=== PATIENT | female | born 1965 | race Caucasian/White ===

== ENCOUNTER 2024-08-03 15:31 | Emergency (ER) | payer SELFPAY ==
[~2024-08-03 15:31] MED LIST: Iopamidol-370 76% 500 ML MDV (1 ML CHARGE) ONE
[2024-08-03] MEDS ORDERED: Morphine 4 MG/ML VIAL ONE (16:54)
[2024-08-03] MEDS ORDERED: Ketorolac Tromethamine 30 MG (1 mL) VIAL ONE (16:54)
[2024-08-03] MEDS ORDERED: Ondansetron PF 4 MG/2 ML Vial ONE (16:54)
[2024-08-03 17:21] LABS: Bacteria/HPF None Seen HPF (None Seen); Bilirubin Negative (Negative); Blood, Urine Negative (Negative); CAUTI Indications for Culture Acute Hematuria; Clarity Clear (Clear); Glucose, Urine (Dipstick) Normal (Negative); Ketone, Urine Negative (Negative); Leukocyte Negative Leu/uL (Negative); Nitrite Negative (Negative); Protein, Urine (Dipstick) Negative (Neg-Trace); RBC/HPF 0-3 HPF (0-3); Squamous Epithelial 0-3 HPF (0-3); Urobilinogen Normal mg/dL (Less than 2); WBC/HPF 0-3 HPF (0-3)
[2024-08-03 17:25] LABS: Urine Culture Reflex No No
[2024-08-03 17:32] LABS: #Basophils 0.07 10x3/uL (0.0-0.2); %Basophils 0.5 % (0.0-1.0); %Eosinophils 1.6 % (0.0-10.0); %Lymphocytes 14.8 % (21.0-51.0); %Monocytes 9.3 % (0.0-10.0); %Neutrophils 73.4 % (42.0-75.0); Mean Corpuscular HGB CONC 34.1 g/dL (32.0-36.0); Mean Corpuscular Hemoglobin 31.7 pg (27.0-31.0); Mean Platelet Volume 9.3 fL (7.4-10.4); Platelet Count 249 10x3/uL (130-400); RBC Distribution Width 13.1 % (11.5-14.5); Red Blood Cell (RBC) Count 4.73 mill/uL (4.20-5.40)
[2024-08-03 18:05] LABS: ALT (SGPT) 13 U/L (8-55); AST (SGOT) 11 U/L (5-34); Albumin 3.8 g/dL (3.5-5.0); Alkaline Phosphatase 77 U/L (40-110); Anion Gap 13 mmol/L (10-20); BUN (Urea Nitrogen) 10 mg/dL (9.8-20.1); Bilirubin, Total 0.4 mg/dL (0.2-1.2); Calc. Creatinine Clearance 0 mL/min (70-130); Calcium 8.8 mg/dL (7.8-10.44); Carbon Dioxide 23 mmol/L (22-29); Chloride 103 mmol/L (98-107); Estimated GFR 90; Globulin 3.4 g/dL (2.4-3.5); Glucose 98 mg/dL (70-105); Lipase 37 U/L (8-78); Potassium 4.2 mmol/L (3.5-5.1); Protein, Total 7.2 g/dL (6.0-8.3); Sodium 135 mmol/L (136-145)
[2024-08-03] MEDS ORDERED: Amoxicillin/Potassium Clav 875 MG TAB ONE (18:13)
== END 2024-08-03 18:32 | disposition home or self-care (01) ==
LOC: ERS 15:31
DX: K57.32 Diverticulitis of large intestine without perforation or abscess without bleeding (principal); R03.0 Elevated blood-pressure reading, without diagnosis of hypertension; Z55.0 Illiteracy and low-level literacy
CPT/HCPCS: 74177; 80053; 81001; 83690; 85025; 93005; 96374; 96375; J1885; J2272; J2405; Q9967

== ENCOUNTER 2025-05-13 13:52 | Emergency (ER) | payer SELFPAY ==
[2025-05-13] MEDS ORDERED: Ondansetron PF 4 MG/2 ML Vial ONE (14:50)
[2025-05-13 15:10] LABS: #Basophils 0.04 10x3/uL (0.0-0.2); #Eosinophils 0.21 10x3/uL (0.0-0.7); #Monocytes 1.01 10x3/uL (0.11-0.59); #Neutrophils 8.60 10x3/uL (1.40-6.50); %Basophils 0.3 % (0.0-1.0); %Eosinophils 1.7 % (0.0-10.0); %Lymphocytes 18.1 % (21.0-51.0); %Monocytes 8.4 % (0.0-10.0); %Neutrophils 71.2 % (42.0-75.0); Hematocrit 42.8 % (36.0-47.0); Hemoglobin 14.2 g/dL (12.0-16.0); Mean Corpuscular Hemoglobin 30.5 pg (27.0-31.0); Mean Corpuscular Volume 92.0 fL (78.0-98.0); Platelet Count 235 10x3/uL (130-400); Red Blood Cell (RBC) Count 4.65 mill/uL (4.20-5.40); White Blood Cell (WBC) Count 12.09 10x3/uL (4.8-10.8)
[2025-05-13 15:35] LABS: ALT (SGPT) 14 U/L (Less than 34); AST (SGOT) 20 U/L (11-34); Albumin 4.0 g/dL (3.1-4.5); Alkaline Phosphatase 90 U/L (40-110); Anion Gap 14 mmol/L (10-20); BUN (Urea Nitrogen) 12 mg/dL (9.8-20.1); Bilirubin, Total 0.5 mg/dL (0.3-1.2); Calc. Creatinine Clearance 0 mL/min (70-130); Calcium 9.6 mg/dL (7.8-10.44); Carbon Dioxide 25 mmol/L (22-29); Chloride 105 mmol/L (98-107); Globulin 3.7 g/dL (2.4-3.5); Glucose 100 mg/dL (70-105); Lipase 39 U/L (8-78); Potassium 4.0 mmol/L (3.5-5.1); Sodium 140 mmol/L (136-145)
[2025-05-13 16:30] LABS: CAUTI Indications for Culture Pelvic or flank pain; Glucose, Urine (Dipstick) Normal (Negative); Leukocyte Negative Leu/uL (Negative); Protein, Urine (Dipstick) Negative (Neg-Trace); RBC/HPF 0-3 HPF (0-3); Specific Gravity, Urine 1.024 (1.002-1.036); WBC/HPF 0-3 HPF (0-3)
[2025-05-13 16:53] LABS: Bacteria/HPF 1+ HPF (None Seen); Urine Culture Reflex No No
[2025-05-13] MEDS ORDERED: Ibuprofen 200 MG TAB ONE (17:41)
[2025-05-13] MEDS ORDERED: HYDROcodone/Acetaminophen 10/325 mg Tablet ONE ×2 (17:42→17:43)
== END 2025-05-13 17:35 | disposition home or self-care (01) ==
LOC: ERS 13:52
DX: K57.32 Diverticulitis of large intestine without perforation or abscess without bleeding (principal)
CPT/HCPCS: 74177; 80053; 81001; 83690; 85025; 96374; J2405; Q9967

== ENCOUNTER 2025-06-07 09:39 | Inpatient (IN) | payer OTHER, SELFPAY ==
[2025-06-07 10:05] LABS: #Basophils 0.04 10x3/uL (0.0-0.2); #Eosinophils 0.34 10x3/uL (0.0-0.7); #Monocytes 0.65 10x3/uL (0.11-0.59); #Neutrophils 6.51 10x3/uL (1.40-6.50); %Basophils 0.4 % (0.0-1.0); %Eosinophils 3.6 % (0.0-10.0); %Lymphocytes 19.7 % (21.0-51.0); %Monocytes 6.9 % (0.0-10.0); %Neutrophils 69.1 % (42.0-75.0); Hematocrit 42.6 % (36.0-47.0); Hemoglobin 13.5 g/dL (12.0-16.0); Mean Corpuscular Hemoglobin 29.9 pg (27.0-31.0); Mean Corpuscular Volume 94.5 fL (78.0-98.0); Platelet Count 248 10x3/uL (130-400); Red Blood Cell (RBC) Count 4.51 mill/uL (4.20-5.40); White Blood Cell (WBC) Count 9.43 10x3/uL (4.8-10.8)
[2025-06-07] MEDS ORDERED: Ondansetron PF 4 MG/2 ML Vial ONE (10:13)
[2025-06-07 10:23] LABS: ALT (SGPT) 11 U/L (Less than 34); AST (SGOT) 21 U/L (11-34); Albumin 3.9 g/dL (3.1-4.5); Anion Gap 16 mmol/L (10-20); BUN (Urea Nitrogen) 16 mg/dL (9.8-20.1); Bilirubin, Total 0.3 mg/dL (0.3-1.2); Calc. Creatinine Clearance 0 mL/min (70-130); Calcium 9.3 mg/dL (7.8-10.44); Carbon Dioxide 24 mmol/L (22-29); Chloride 105 mmol/L (98-107); Globulin 3.3 g/dL (2.4-3.5); Glucose 132 mg/dL (70-105); Lipase 42 U/L (8-78); Potassium 4.4 mmol/L (3.5-5.1); Sodium 141 mmol/L (136-145)
[2025-06-07 10:34] LABS: Bacteria/HPF None Seen HPF (None Seen); CAUTI Indications for Culture Pelvic or flank pain; Glucose, Urine (Dipstick) Normal (Negative); Leukocyte Negative Leu/uL (Negative); Protein, Urine (Dipstick) Negative (Neg-Trace); RBC/HPF 0-3 HPF (0-3); Specific Gravity, Urine 1.007 (1.002-1.036); WBC/HPF 0-3 HPF (0-3)
[2025-06-07] MEDS ORDERED: Iopamidol-370 76% 500 ML MDV (1 ML CHARGE) ONE (10:50)
[2025-06-07 10:58] LABS: Urine Culture Reflex No No
[2025-06-07 11:06] LABS: Alkaline Phosphatase 85 U/L (40-110)
[2025-06-07] MEDS ORDERED: Ciprofloxacin Lactate D5W 400 mg (200 mL) BAG ONE (11:10)
[2025-06-07] MEDS ORDERED: metroNIDAZOLE 500 MG (100 mL) BAG ONE (13:56)
[2025-06-07] MEDS: Acetaminophen 325 MG TAB PO PRN (14:42)
[2025-06-07 14:55] VITALS: BMI 29.6
[2025-06-07] MEDS: Famotidine/PF 20 mg/2ml Vial SLOW IVP SCH (20:49)
[2025-06-08] MEDS: Ciprofloxacin Lactate/D5W 400 MG in Premix 1 BAG IVPB SCH (00:12)
[2025-06-08 06:11] LABS: #Basophils 0.03 10x3/uL (0.0-0.2); #Eosinophils 0.28 10x3/uL (0.0-0.7); #Monocytes 0.64 10x3/uL (0.11-0.59); #Neutrophils 3.08 10x3/uL (1.40-6.50); %Basophils 0.5 % (0.0-1.0); %Eosinophils 4.9 % (0.0-10.0); %Lymphocytes 29.2 % (21.0-51.0); %Monocytes 11.2 % (0.0-10.0); %Neutrophils 53.9 % (42.0-75.0); Hematocrit 40.5 % (36.0-47.0); Hemoglobin 12.5 g/dL (12.0-16.0); Mean Corpuscular Hemoglobin 29.6 pg (27.0-31.0); Mean Corpuscular Volume 95.7 fL (78.0-98.0); Platelet Count 200 10x3/uL (130-400); Red Blood Cell (RBC) Count 4.23 mill/uL (4.20-5.40); White Blood Cell (WBC) Count 5.72 10x3/uL (4.8-10.8)
[2025-06-08 06:27] LABS: Anion Gap 15 mmol/L (10-20); BUN (Urea Nitrogen) 7 mg/dL (9.8-20.1); Calc. Creatinine Clearance 120 mL/min (70-130); Calcium 8.5 mg/dL (7.8-10.44); Carbon Dioxide 21 mmol/L (22-29); Chloride 109 mmol/L (98-107); Glucose 90 mg/dL (70-105); Potassium 4.1 mmol/L (3.5-5.1); Sodium 141 mmol/L (136-145)
[2025-06-08] MEDS: Ondansetron PF 4 MG/2 ML Vial IVP PRN (11:46)
[2025-06-09 06:24] LABS: #Basophils 0.03 10x3/uL (0.0-0.2); #Eosinophils 0.20 10x3/uL (0.0-0.7); #Monocytes 0.39 10x3/uL (0.11-0.59); #Neutrophils 2.96 10x3/uL (1.40-6.50); %Basophils 0.7 % (0.0-1.0); %Eosinophils 4.3 % (0.0-10.0); %Lymphocytes 21.7 % (21.0-51.0); %Monocytes 8.5 % (0.0-10.0); %Neutrophils 64.4 % (42.0-75.0); Hematocrit 40.2 % (36.0-47.0); Hemoglobin 12.9 g/dL (12.0-16.0); Mean Corpuscular Hemoglobin 29.9 pg (27.0-31.0); Mean Corpuscular Volume 93.3 fL (78.0-98.0); Platelet Count 197 10x3/uL (130-400); Red Blood Cell (RBC) Count 4.31 mill/uL (4.20-5.40); White Blood Cell (WBC) Count 4.60 10x3/uL (4.8-10.8)
[2025-06-09 06:38] LABS: Anion Gap 15 mmol/L (10-20); BUN (Urea Nitrogen) 9 mg/dL (9.8-20.1); Calc. Creatinine Clearance 118 mL/min (70-130); Calcium 8.9 mg/dL (7.8-10.44); Carbon Dioxide 20 mmol/L (22-29); Chloride 109 mmol/L (98-107); Glucose 131 mg/dL (70-105); Potassium 3.9 mmol/L (3.5-5.1); Sodium 140 mmol/L (136-145)
[2025-06-09 06:39] LABS: CRP, High Sensitivity at Bryan 2.33 mg/dL (< or = 0.5)
[2025-06-09 16:33] VITALS: BP 158/90; TEMP 98
== END 2025-06-09 16:39 | disposition home or self-care (01) | DRG 392 ==
LOC: ERS 09:39 → T4-A 11:57
PROVIDERS: ADMIT Family Medicine; ATTEND Family Medicine
DX: K57.32 Diverticulitis of large intestine without perforation or abscess without bleeding (principal)
CPT/HCPCS: 36415; 74177; 80048; 80053; 81001; 83605; 83690; 85025; 86141; 96374; 96375; 96376; J0744; J7030; Q9967

== ENCOUNTER 2025-07-27 15:54 | Emergency (ER) | payer OTHER ==
[2025-07-27 16:35] LABS: Bacteria/HPF None Seen HPF (None Seen); CAUTI Indications for Culture Acute Hematuria; Glucose, Urine (Dipstick) Normal (Negative); Leukocyte Negative Leu/uL (Negative); Protein, Urine (Dipstick) Negative (Neg-Trace); RBC/HPF 0-3 HPF (0-3); Specific Gravity, Urine 1.021 (1.002-1.036); WBC/HPF 0-3 HPF (0-3)
[2025-07-27 16:36] LABS: Urine Culture Reflex No No
[2025-07-27] MEDS ORDERED: Ondansetron PF 4 MG/2 ML Vial ONE (17:58)
[2025-07-27 18:06] LABS: #Basophils 0.06 10x3/uL (0.0-0.2); #Eosinophils 0.61 10x3/uL (0.0-0.7); #Monocytes 0.92 10x3/uL (0.11-0.59); #Neutrophils 6.94 10x3/uL (1.40-6.50); %Basophils 0.5 % (0.0-1.0); %Eosinophils 5.5 % (0.0-10.0); %Lymphocytes 22.2 % (21.0-51.0); %Monocytes 8.3 % (0.0-10.0); %Neutrophils 63.1 % (42.0-75.0); Hematocrit 39.4 % (36.0-47.0); Hemoglobin 13.0 g/dL (12.0-16.0); Mean Corpuscular Hemoglobin 30.4 pg (27.0-31.0); Mean Corpuscular Volume 92.3 fL (78.0-98.0); Platelet Count 257 10x3/uL (130-400); Red Blood Cell (RBC) Count 4.27 mill/uL (4.20-5.40); White Blood Cell (WBC) Count 11.02 10x3/uL (4.8-10.8)
[2025-07-27 18:21] LABS: ALT (SGPT) 11 U/L (Less than 34); AST (SGOT) 14 U/L (11-34); Albumin 3.7 g/dL (3.1-4.5); Alkaline Phosphatase 75 U/L (40-110); Anion Gap 13 mmol/L (10-20); BUN (Urea Nitrogen) 10 mg/dL (9.8-20.1); Bilirubin, Total 0.2 mg/dL (0.3-1.2); Calc. Creatinine Clearance 0 mL/min (70-130); Calcium 9.2 mg/dL (7.8-10.44); Carbon Dioxide 25 mmol/L (22-29); Chloride 106 mmol/L (98-107); Globulin 3.6 g/dL (2.4-3.5); Glucose 102 mg/dL (70-105); Potassium 4.3 mmol/L (3.5-5.1); Sodium 140 mmol/L (136-145)
== END 2025-07-27 20:36 | disposition home or self-care (01) ==
LOC: ERS 15:54
DX: K57.32 Diverticulitis of large intestine without perforation or abscess without bleeding (principal)
CPT/HCPCS: 74177; 80053; 81001; 83605; 83690; 85025; 96374; 96375; J2270; J2405; Q9967